=== PATIENT | male | born 2005 | race Hispanic/Latino ===

== ENCOUNTER 2025-08-20 15:36 | Emergency (ER) | payer OTHER ==
[~2025-08-20] VITALS: Ht 172.7 cm; Wt 106.6 kg
[2025-08-20 15:39] VITALS: BP 154/74; PULSE 87; RESP 18; TEMP 98.6
[2025-08-20] MEDS ORDERED: DOXY100C5 PO (15:44)
[2025-08-20] MEDS ORDERED: AZIT500T2 PO (15:44)
--- NOTE | 2025-08-20 15:45 | ERN ---
ED Note History of Present Illness Stated Complaint: STD Chief Complaint: Sexually Transmitted Disease Time Seen by MD: 15:39 Dictation: PATIENT IS A 20-YEAR-OLD MALE COMING IN TODAY STATES HE HAD WANTED TO BE SEEN FOR STD EXPOSURE. HE STATES HIS WENT TO HER [employer]PER[employer] DOCTOR, DR. CEDEÑO AND WAS TESTED POSITIVE FOR GONORRHEA IN HIS BEING TREATED TODAY. I ADVISED HIM I COULD NOT DO ALL THE TESTING HOWEVER I TOLD HIM I WOULD TREAT HIM PROPHYLACTICALLY FOR EXPOSURE SINCE SHE WAS POSITIVE AND WOULD HAVE HIM FOLLOW UP WITH [facility]. Past Medical History RN Note Reviewed/Agreed w/PFSH: Yes Review of System Dictation CONSTITUTIONAL: NEGATIVE EXCEPT FOR HPI HEAD/FACE: NEGATIVE EXCEPT FOR HPI EENT: NEGATIVE EXCEPT FOR HPI RESPIRATORY: NEGATIVE EXCEPT FOR HPI GASTROINTESTINAL/ABDOMINAL: NEGATIVE EXCEPT FOR HPI GENITOURINARY: NEGATIVE EXCEPT FOR HPI MUSCULOSKELETAL: NEGATIVE EXCEPT FOR HPI INTEGUMENTARY: NEGATIVE EXCEPT FOR HPI NEUROLOGICAL/PSYCH: NEGATIVE EXCEPT FOR HPI HEMATOLOGIC/LYMPHATIC: NEGATIVE EXCEPT FOR HPI ALL SYSTEMS NEGATIVE, EXCEPT NOTED ABOVE. 13 POINT REVIEW OF SYSTEMS ASSESSED AND ALL NEGATIVE EXCEPT FOR ABOVE. Physical Exam Dictation VITAL SIGNS REVIEWED GENERAL APPEARANCE: ALERT, ORIENTED X 3, NO ACUTE DISTRESS, WELL DEVELOPED, NOURISHED. HEAD AND FACE: NON-TRAUMATIC. EYES: PERRL, PINK CONJUNCTIVAS, EYELID NO TRAUMA, ANTERIOR CHAMBER WITH ARCUS SENILIS. EARS: PINNAS INTACT AND NO SIGNS OF TRAUMA OR ERYTHEMA EAR CANALS CLEAR AND NO DISCHARGE TM NO ERYTHEMA NOSE: NO DISCHARGE, NO BLEEDING. OROPHARYNX: MOUTH NORMAL, TONGUE PINK, PHARYNX CLEAR,NO ERYTHEMA, TONSILS NO EXUDATES, NO ABSCESSES NOTED, MUCOUS MEMBRANE MOIST NECK: SUPPLE, NON-TENDER, NO THYROMEGALY, NO MASSES, NO JVD, NO BRUITS BREAST:DEFERRED CHEST:NO TENDERNESS, NO CREPITUS, NO PARADOXICAL MOVEMENT, NO RETRACTIONS LUNGS:CLEAR, WELL-VENTILATED, SYMMETRIC, NO RALES, NO WHEEZING, NO RHONCHI, NO STRIDOR, GOOD BREATH SOUNDS BILATERALLY HEART: REGULAR RATE, REGULAR RHYTHM, NO MURMUR, NO GALLOPS VASCULAR: NO PERIPHERAL EDEMA, ABDOMEN: SOFT, POSITIVE BOWEL SOUNDS, NONDISTENDED, NO GUARDING, NONTENDER, NO REBOUND, NO MASSES NO HEPATOMEGALY, NO SPLENOMEGALY, NO AREVALO'S SIGN, NO HERNIAS. RECTAL: DEFERRED GENITAL: DEFERRED NEUROLOGICAL: NORMAL SPEECH, MOTOR FUNCTION INTACT, SENSORY FUNCTION INTACT MUSCULOSKELETAL: NECK NONTENDER, FULL RANGE OF MOTION, BACK NONTENDER, FULL RANGE OF MOTION, EXTREMITIES: NONTENDER, FULL RANGE OF MOTION SKIN: COLOR PINK, DRY, NO TURGOR, NO RASH, NO LACERATIONS, NO ABRASIONS, NO CONTUSIONS. LYMPHATIC: DEFERRED Results (Laboratory/Radiology) Labs Reviewed?: Yes ED Course ED Course Orders Procedure Category Date Status Time Ceftriaxone 1g Vial PHA 08/20/25 Transmitted (Rocephine 1g Inj) 16:00 Chlamydia & Gc Pcr JEROME 08/20/25 Transmitted 15:39 Medical Decision Making [facility] 1540/MEDICAL DECISION-MAKING BASED ON EMPIRIC TREATMENT FOR GONORRHEA EXPOSURE. PATIENT GIVEN ROCEPHIN URINE FOR GC AND CHLAMYDIA COLLECTED PATIENT DISCHARGED HOME WITH DOXYCYCLINE AND AZITHROMYCIN OX [facility]ERRED TO [facility] AND TOLD NO SEX UNTIL CLEARED BY HIS DOCTOR. DX & DISP Disposition: Discharge Departure Impression: Primary Impression: STD exposure Condition: Stable Scripts Doxycycline Hyclate (Doxycycline Hyclate) 100 Mg Capsule 1 CAP PO BID for 14 Days, #28 CAP 0 Refills Prov: RICKY CONDE NP 08/20/25 Azithromycin (Zithromax Tri-Antonio) 500 Mg Tablet 500 MG PO ONCE for 1 Day, #2 TAB TWO TABLETS BY MOUTH X1 DOSE. Prov: RICKY CONDE NP 08/20/25 Additional Instructions: FOLLOW-UP WITH PRIMARY CARE PROVIDER IN 1 TO 2 DAYS. TAKE MEDICATIONS DIRECTED HERE IN THE EMERGENCY ROOM. OKAY TO CONTINUE HOME MEDICATIONS UNLESS OTHERWISE DISCUSSED DURING YOUR VISIT IN THE EMERGENCY ROOM TODAY. RETURN TO YOUR NEAREST EMERGENCY ROOM IF SYMPTOMS WORSEN OR IF THERE IS NO IMPROVEMENT. CALL 911 IF YOU NEED IMMEDIATE ASSISTANCE. TAKE TYLENOL OR MOTRIN [id number] NEEDED AND IF NO CONTRAINDICATIONS ARE PRESENT. INCREASE ORAL HYDRATION. A WOUND CULTURE OR URINE CULTURE WAS ORDERED HERE IN THE EMERGENCY ROOM DEPARTMENT PLEASE FOLLOW-UP WITH PRIMARY CARE PROVIDER AND ADVISE THEM TO GET REPEAT PORTS FROM OUR FACILITY. IF YOU HAD ANY SRIRAM WRAP/SPLINTS THAT WERE APPLIED HERE, PLEASE DO NOT REMOVE THEM UNTIL YOU SEE YOUR PRIMARY CARE OR SPECIALTY. TAKE DOXYCYCLINE AND AZITHROMYCIN DIRECTED UNTIL GONE. NO SEX OF ANY KIND UNTIL CLEARED BY YOUR DOCTOR. FOLLOW UP WITH [facility] ON SATURDAY WITHOUT FAIL FOR FURTHER EVALUATION OF POSSIBLE STD EXPOSURE. Referrals: SELF,REFERRAL (PCP) Time of Disposition: 15:42 I have reviewed the case, and I agree with, Diagnosis and Plan RICKY CONDE NP Aug 20, 2025 15:45
== END 2025-08-20 17:43 | disposition home or self-care (01) ==
LOC: EDH 15:36 → EDSEX 15:36 → EDH 17:43
DX: Z20.2 Contact with and (suspected) exposure to infections with a predominantly sexual mode of transmission (principal)
CPT/HCPCS: 99283; 96374; 87491; 87591; J0696